=== PATIENT | female | born 1975 | race Caucasian/White ===

== ENCOUNTER 2016-05-15 | Outpatient (CLI) | payer OTHER | END 2016-05-15 15:36 | disposition short-term general hospital (02) | CPT/HCPCS: A0170; A0425; A0426 ==

== ENCOUNTER 2018-12-19 14:40 | Outpatient (CLI) | payer OTHER ==
--- NOTE | 2018-12-22 17:07 | Ultrasound Report ---
Reason: TEST POSITIVE Procedure Date: 12/19/2018 Accession Number: [id number] / [id number] Procedure: US - OB First Trimester CPT Code: FULL RESULT: EXAM: FIRST TRIMESTER OBSTETRIC ULTRASOUND (Less than 11 weeks) EXAM DATE: 12/19/2018 03:04 PM. CLINICAL HISTORY: test positive. LMP: 09/15/2018. COMPARISONS: None. TECHNIQUE: Transabdominal and transvaginal ultrasound examination with static image documentation. CLINICAL DATES: EGA 13 weeks 4 days with EBN 06/22/2019 based on LMP. ASSESSMENT: Gestational Sac: Single Intrauterine (provisional; see below discussion). Mean gestational sac diameter: 12 mm = 6 weeks 0 days. Embryo: CRL (crown-rump length) 4 mm = 6 weeks 2 days. Cardiac activity: 114 beats per minute. Yolk sac: 4 mm. Amniotic fluid: Not accurately assessed at this gestational age. Early placenta: Not visible at this gestational age. Other: 1. Possible septate uterine morphology. 2. Nonspecific oval fluid collection in the right endometrial cavity measuring 1 x 1.7 x 0.7 cm could be pseudo-gestational fluid versus separate gestational sac. 3. 4 mm oval perigestational fluid collection bounded by the echogenic decidual ring. MATERNAL STRUCTURES: Uterus: Retroverted.Probable 9 mm fibroid posterior intramural. Cervix: Closed. Right Ovary/Adnexa: The ovary measures 3.7 x 1.8 x 4.7 cm, volume 15.8 cc. Unremarkable. Left Ovary/Adnexa: The ovary measures 6.3 x 4.6 x 6 cm, volume 91 cc. Contains a unilocular anechoic thin-walled 4.4 x 3 x 4.2 cm cyst. Free Fluid: None. Other: None. IMPRESSION: 1. Provisionally single viable intrauterine at EGA 6 weeks 2 days with BEN 08/12/2019 based on crown-rump length, which is discordant with clinical dates by LMP. 2. Assigned dating is BEN 6 weeks 2 days based on current ultrasound. 3. Nonspecific fluid collection in the right endometrial cavity as described; unable to differentiate pseudo-gestational fluid/sac from separate gestational sac at this time. Recommend short interval follow-up and correlation with serial beta-hCG. 4. Nonspecific 4 mm perigestational fluid collection contained within the decidual ring. RADIA
== END 2018-12-19 14:41 | disposition home or self-care (01) ==
LOC: DI 14:40
PROVIDERS: ATTEND Obstetrics & Gynecology
DX: Z32.01 Encounter for pregnancy test, result positive (principal)
CPT/HCPCS: 76801; 76817

== ENCOUNTER 2018-12-29 08:00 | Outpatient (CLI) | payer OTHER ==
[2018-12-30 15:39] LABS: TRICHOMONAS VAGINALIS DNA UNRESOLVED (NEGATIVE)
== END 2018-12-29 08:01 | disposition home or self-care (01) ==
LOC: LAB.R 08:00
PROVIDERS: ATTEND Obstetrics & Gynecology
DX: O09.90 Supervision of high risk pregnancy, unspecified, unspecified trimester (principal)
CPT/HCPCS: 87491; 87591; 87661

== ENCOUNTER 2018-12-29 08:00 | Outpatient (CLI) | payer OTHER ==
[2018-12-29 14:34] LABS: MUDS CUTOFF CONCENTRATIONS CUTOFF CONC BELOW:
[2018-12-29 15:12] LABS: BILIRUBIN,URINE NEGATIVE (NEGATIVE); GLUCOSE, URINE (UA) NEGATIVE (NEGATIVE); KETONES,URINE (UA) NEGATIVE (NEGATIVE); LEUKOCYTE ESTERASE, URINE NEGATIVE (NEGATIVE); NITRITE,URINE NEGATIVE (NEGATIVE); OCCULT BLOOD,URINE NEGATIVE (NEGATIVE); PH,URINE 8.5 PH (5.0-7.5); PROTEIN,URINE NEGATIVE (NEGATIVE); UROBILINOGEN,URINE 0.2 (NORMAL) E.U./dL (NORMAL)
[2018-12-29 15:20] LABS: CLARITY,URINE CLEAR (CLEAR)
[2018-12-29 15:23] LABS: AMPHETAMINE SCREEN,URINE NEGATIVE (NEGATIVE); BENZODIAZEPINES SCREEN, URINE NEGATIVE (NEGATIVE); COCAINE SCREEN URINE NEGATIVE (NEGATIVE); METHADONE SCREEN, URINE NEGATIVE (NEGATIVE); METHAMPHETAMINES SCREEN, URINE NEGATIVE (NEGATIVE); OPIATE SCREEN, URINE NEGATIVE (NEGATIVE); OXYCODONE SCREEN, URINE NEGATIVE (NEGATIVE); PROPOXYPHENE SCREEN, URINE NEGATIVE (NEGATIVE); TRICYCLIC ANTIDEPRESSANT,URINE NEGATIVE (NEGATIVE)
[2018-12-29 15:35] LABS: BACTERIA,URINE None Seen /HPF (None Seen); RBC,URINE None Seen /HPF (0-5); SQUAMOUS EPITHELIAL CELL,UR MANY Squamous (<= Few)
== END 2018-12-29 08:01 | disposition home or self-care (01) ==
LOC: LAB.R 08:00
PROVIDERS: ATTEND Obstetrics & Gynecology
DX: O09.90 Supervision of high risk pregnancy, unspecified, unspecified trimester (principal)
CPT/HCPCS: 80306; 81001; 87086

== ENCOUNTER 2018-12-29 09:45 | Outpatient (CLI) | payer OTHER ==
[2018-12-29 10:28] LABS: MUDS CUTOFF CONCENTRATIONS CUTOFF CONC BELOW:
[2018-12-29 10:31] LABS: BILIRUBIN,URINE NEGATIVE (NEGATIVE); CLARITY,URINE CLEAR (CLEAR); GLUCOSE, URINE (UA) NEGATIVE (NEGATIVE); KETONES,URINE (UA) NEGATIVE (NEGATIVE); LEUKOCYTE ESTERASE, URINE NEGATIVE (NEGATIVE); NITRITE,URINE NEGATIVE (NEGATIVE); OCCULT BLOOD,URINE NEGATIVE (NEGATIVE); PH,URINE 8.5 PH (5.0-7.5); PROTEIN,URINE NEGATIVE (NEGATIVE); UROBILINOGEN,URINE 0.2 (NORMAL) E.U./dL (NORMAL)
[2018-12-29 10:32] LABS: BASOPHILS # (AUTO) 0.1 10^3/uL (0.0-0.1); BASOPHILS % (AUTO) 0.5 %; EOSINOPHILS # (AUTO) 0.1 10^3/uL (0.0-0.7); EOSINOPHILS % (AUTO) 0.5 %; HGB - HEMOGLOBIN 12.1 g/dL (12.0-16.0); LYMPHOCYTES # (AUTO) 2.3 10^3/uL (1.5-3.5); MEAN CORPUSCULAR HEMOGLOBIN 31.6 pg (27.0-31.0); MEAN CORPUSCULAR HGB CONC 33.6 g/dL (32.0-36.0); MEAN PLATELET VOLUME 10.7 fL (7.9-10.8); MONOCYTES # (AUTO) 0.5 10^3/uL (0.0-1.0); MONOCYTES % (AUTO) 4.8 %; NEUTROPHILS % (AUTO) 70.8 %; PLT - PLATELET COUNT 225 10^3/uL (130-450); RED BLOOD COUNT 3.83 10^6/uL (4.20-5.40); RED CELL DISTRIBUTION WIDTH 12.3 % (12.0-15.0); WHITE BLOOD COUNT 9.9 x10^3/uL (4.8-10.8)
[2018-12-29 10:40] LABS: AMPHETAMINE SCREEN,URINE NEGATIVE (NEGATIVE); BENZODIAZEPINES SCREEN, URINE NEGATIVE (NEGATIVE); COCAINE SCREEN URINE NEGATIVE (NEGATIVE); METHADONE SCREEN, URINE NEGATIVE (NEGATIVE); METHAMPHETAMINES SCREEN, URINE NEGATIVE (NEGATIVE); OPIATE SCREEN, URINE NEGATIVE (NEGATIVE); OXYCODONE SCREEN, URINE NEGATIVE (NEGATIVE); PROPOXYPHENE SCREEN, URINE NEGATIVE (NEGATIVE); TRICYCLIC ANTIDEPRESSANT,URINE NEGATIVE (NEGATIVE)
[2018-12-30 11:48] LABS: HEPATITIS B SURFACE ANTIGEN NON-REACTIVE (NON-REACTIVE); HEPATITIS C ANTIBODY NON-REACTIVE (NON-REACTIVE)
[2018-12-30 14:15] LABS: HIV AG/AB 4TH GEN NON-REACTIVE (NON-REACTIVE)
== END 2018-12-29 09:46 | disposition home or self-care (01) ==
LOC: LAB 09:45
PROVIDERS: ATTEND Obstetrics & Gynecology
DX: O09.90 Supervision of high risk pregnancy, unspecified, unspecified trimester (principal)
CPT/HCPCS: 36415; 80306; 81001; 81003; 81599; 85025; 86592; 86762; 86803; 86850; 86900; 86901; 87086; 87340; 87389; 87491; 87591; 87661

== ENCOUNTER 2019-01-07 14:58 | Outpatient (CLI) | payer OTHER ==
--- NOTE | 2019-01-08 13:45 | Ultrasound Report ---
Reason: SUPERVISION HIGH RISK Procedure Date: 01/07/2019 Accession Number: [id number] / [id number] Procedure: US - OB First Trimester CPT Code: FULL RESULT: EXAM: FIRST TRIMESTER OBSTETRIC ULTRASOUND (Less than 11 weeks) EXAM DATE: 01/07/2019 03:17 PM. CLINICAL HISTORY: SUPERVISION HIGH RISK . LMP: 09/15/2018 but the patient reportedly is unsure. First ultrasound demonstrated discordance with the clinical estimated age. Established BEN based on first ultrasound. COMPARISONS: OB FIRST TRIMESTER 12/19/2018 5:53 PM OB FIRST TRIMESTER 12/19/2018 3:04 PM. TECHNIQUE: Transabdominal and transvaginal ultrasound examination with static image documentation. CLINICAL DATES: Established EGA 9 weeks 0 days with BEN 08/12/2019 based on first ultrasound 12/19/2018. ASSESSMENT: Gestational Sac: Single intrauterine. Mean gestational sac diameter: 35 mm = 8 weeks 5 days. Embryo: CRL (crown-rump length) 21 mm = 8 weeks 5 days. Cardiac activity: 169 beats per minute. Yolk sac: 5 mm. Amniotic fluid: Not accurately assessed at this gestational age. Early placenta: Not visible at this gestational age. Other: 1.8 x 2.3 cm perigestational fluid collection demonstrated. Previously, there was 1.0 x 1.7 x 0.7 cm perigestational fluid collection. Again demonstrated is a well-defined cystic structure abutting the gestational sac and bounded by echogenic decidual ring measuring 1.1 x 0.8 x 1.0 cm, volume 0.40 cc, previously 0.4 x 0.3 x 0.4 cm, volume 0.02 cc. No yolk sac or embryo demonstrated within this. MATERNAL STRUCTURES: Uterus: Anteverted. Unremarkable. Cervix: Closed. Right Ovary/Adnexa: The ovary measures 4.0 x 2.1 x 4.5 cm, volume 19.8 cc, previously estimated as 15.8 cc. Prominent but otherwise unremarkable. Left Ovary/Adnexa: The ovary measures 5.4 x 5.4 x 5.4 cm, volume 82 cc, previously 91 cc. Single simple appearing cyst again demonstrated measuring approximately 3.7 x 3.5 x 3.5 cm, volume 26.0 cc, previously 4.0 x 3.3 x 3.2 cm, volume 21.8 cc. Free Fluid: None. Other: None. IMPRESSION: 1. Single viable intrauterine at EGA 9 weeks 0 days with BEN 08/12/2019 based on first ultrasound with expected interval growth compared with 12/19/2018. 2. Nonspecific cystic structure adjacent to the gestational sac is mildly increased, measuring up to 1.1 cm, previously 0.4 cm. No yolk sac or embryo demonstrated within that structure. 3. Increase perigestational fluid/hemorrhage measuring up to 2.3 cm, previously 1.0 cm. 4. Simple right ovarian cyst measures mildly larger. RADIA
== END 2019-01-07 14:59 | disposition home or self-care (01) ==
LOC: DI 14:58
PROVIDERS: ATTEND Obstetrics & Gynecology
DX: O09.90 Supervision of high risk pregnancy, unspecified, unspecified trimester (principal); O34.81 Maternal care for other abnormalities of pelvic organs, first trimester; N83.201 Unspecified ovarian cyst, right side; O20.9 Hemorrhage in early pregnancy, unspecified; Z3A.09 9 weeks gestation of pregnancy
CPT/HCPCS: 76801; 76817

== ENCOUNTER 2019-01-26 08:00 | Outpatient (CLI) | payer OTHER ==
[2019-01-26 21:21] LABS: TRICHOMONAS VAGINALIS DNA NEGATIVE (NEGATIVE)
== END 2019-01-26 23:59 | disposition home or self-care (01) ==
LOC: LAB.R 08:00
PROVIDERS: ATTEND Obstetrics & Gynecology
DX: O09.90 Supervision of high risk pregnancy, unspecified, unspecified trimester (principal); Z3A.00 Weeks of gestation of pregnancy not specified
CPT/HCPCS: 87491; 87591; 87661

== ENCOUNTER 2019-01-26 09:05 | Outpatient (CLI) | payer OTHER | END 2019-01-26 09:06 | disposition home or self-care (01) | LOC: LAB 09:05 | PROVIDERS: ATTEND Obstetrics & Gynecology | DX: O09.90 Supervision of high risk pregnancy, unspecified, unspecified trimester (principal); Z36.89 Encounter for other specified antenatal screening; Z3A.00 Weeks of gestation of pregnancy not specified | CPT/HCPCS: 36415; 81599; 87491; 87591; 87661 ==

== ENCOUNTER 2019-03-19 10:36 | Outpatient (CLI) | payer OTHER | END 2019-03-19 10:37 | disposition home or self-care (01) | LOC: LAB 10:36 | PROVIDERS: ATTEND Obstetrics & Gynecology | DX: O09.529 Supervision of elderly multigravida, unspecified trimester (principal); Z3A.00 Weeks of gestation of pregnancy not specified | CPT/HCPCS: 36415; 81599; 82105 ==

== ENCOUNTER 2019-05-11 08:19 | Outpatient (CLI) | payer OTHER ==
[2019-05-11 09:39] LABS: HGB - HEMOGLOBIN 11.8 g/dL (12.0-16.0); MEAN CORPUSCULAR HEMOGLOBIN 31.7 pg (27.0-31.0); MEAN CORPUSCULAR HGB CONC 33.4 g/dL (32.0-36.0); MEAN CORPUSCULAR VOLUME 94.9 fL (81.0-99.0); MEAN PLATELET VOLUME 10.1 fL (7.9-10.8); RED BLOOD COUNT 3.72 10^6/uL (4.20-5.40); RED CELL DISTRIBUTION WIDTH 12.3 % (12.0-15.0); WHITE BLOOD COUNT 10.9 x10^3/uL (4.8-10.8)
== END 2019-05-11 08:20 | disposition home or self-care (01) ==
LOC: LAB 08:19
PROVIDERS: ATTEND Obstetrics & Gynecology
DX: O09.529 Supervision of elderly multigravida, unspecified trimester (principal); Z3A.00 Weeks of gestation of pregnancy not specified
CPT/HCPCS: 36415; 82950; 85027

== ENCOUNTER 2019-06-16 07:00 | Outpatient (CLI) | payer OTHER | END 2019-06-16 23:59 | disposition home or self-care (01) | LOC: LAB.R 07:00 | PROVIDERS: ATTEND Obstetrics & Gynecology | DX: Z87.51 Personal history of pre-term labor (principal) | CPT/HCPCS: 82731 ==

== ENCOUNTER 2019-07-13 16:08 | Outpatient (CLI) | payer OTHER ==
[2019-07-13 21:11] LABS: TRICHOMONAS VAGINALIS DNA NEGATIVE (NEGATIVE)
== END 2019-07-13 23:59 | disposition home or self-care (01) ==
LOC: LAB.R 16:08
PROVIDERS: ATTEND Obstetrics & Gynecology
DX: Z36.85 Encounter for antenatal screening for Streptococcus B (principal)
CPT/HCPCS: 87491; 87591; 87661; 87797

== ENCOUNTER 2019-07-21 22:02 | Inpatient (IN) | payer OTHER ==
[2019-07-21 22:25] LABS: RUPTURE OF MEMBRANES PLUS POSITIVE (NEGATIVE)
[2019-07-21] MEDS ORDERED: ONDANSETRON 4 MG/2 ML VIAL IVP PRN (22:36)
[2019-07-21] MEDS ORDERED: SODIUM CHLORIDE FLUSH 0.9% 10 ML SYRINGE IVP PRN (22:36)
[2019-07-21] MEDS ORDERED: fentaNYL 100 MCG/2 ML VIAL IVP PRN (22:36)
[2019-07-21] MEDS ORDERED: LACTATED RINGERS 1,000 ML IV SCH (23:00)
[2019-07-21 23:24] LABS: BASOPHILS % (AUTO) 0.3 %; EOSINOPHILS # (AUTO) 0.2 10^3/uL (0.0-0.7); EOSINOPHILS % (AUTO) 1.5 %; HGB - HEMOGLOBIN 11.9 g/dL (12.0-16.0); LYMPHOCYTES # (AUTO) 2.5 10^3/uL (1.5-3.5); LYMPHOCYTES % (AUTO) 22.2 %; MEAN CORPUSCULAR HEMOGLOBIN 33.1 pg (27.0-31.0); MEAN CORPUSCULAR HGB CONC 35.2 g/dL (32.0-36.0); MEAN CORPUSCULAR VOLUME 94.2 fL (81.0-99.0); MEAN PLATELET VOLUME 10.5 fL (7.9-10.8); MONOCYTES # (AUTO) 0.6 10^3/uL (0.0-1.0); NEUTROPHILS % (AUTO) 70.6 %; PLT - PLATELET COUNT 246 10^3/uL (130-450); RED BLOOD COUNT 3.59 10^6/uL (4.20-5.40); RED CELL DISTRIBUTION WIDTH 12.4 % (12.0-15.0); WHITE BLOOD COUNT 11.3 x10^3/uL (4.8-10.8)
[2019-07-21] MEDS ORDERED: TERBUTALINE 1 MG/ML VIAL SUBQ ONE (23:57)
[2019-07-22] MEDS ORDERED: CITRIC ACID/SODIUM CITRATE 15 ML UDC PO ONE (00:03)
[2019-07-22] MEDS ORDERED: ceFAZolin 3 GM in SODIUM CHLORIDE 0.9% 100ML 100 ML IV ONE (00:03)
--- NOTE | 2019-07-22 00:17 | ANESTHESIA ---
Pre-Anesthesia VS, & Labs - Diagnosis bradycardia - Procedure primary c/s Vital Signs: Temp Pulse Resp BP Pulse Ox 36.9 C 63 21 121/68 100 07/21/19 22:17 07/21/19 22:17 07/21/19 22:17 07/21/19 22:17 07/21/19 22:17 Height 5 ft 2 in Weight (kg) 68.946 kg - NPO Last Fluid Intake: H20 2315 Last Food Intake: 1999 - Is Patient ?: Yes - Lab Results Current Lab Results: Laboratory Tests 07/21/19 23:05: WBC 11.3 H, RBC 3.59 L, Hgb 11.9 L, Hct 33.8 L, MCV 94.2, MCH 33.1 H, MCHC 35.2, RDW 12.4, Plt Count 246, MPV 10.5, Neut # (Auto) 8.0 H, Lymph # (Auto) 2.5, [place] # (Auto) 0.6, Eos # (Auto) 0.2, Baso # (Auto) 0.0, Absolute Nucleated RBC 0.00, Nucleated RBC % 0.0 07/21/19 23:05: Blood Type A POSITIVE, Antibody Screen NEGATIVE, Crossmatch IS Only See Detail Fish Bones: 07/21/19 23:05 Home Medications and Allergies Active Medications Fentanyl (Fentanyl) 50 mcg IVP Q1H PRN PRN Reason: PAIN Lactated Ringer's (Lr) 1,000 mls @ 150 mls/hr IV .Q6H40M ADELINA Last Admin: 07/21/19 23:31 Dose: 150 mls/hr Oxytocin/Sodium Chloride (Pitocin/Sodium Chloride) 500 mls @ 999 mls/hr IV PRN PRN; Protocol PRN Reason: POST- HEMORR PREVENTION Cefazolin Sodium 3 gm/ Sodium (Chloride) 100 mls @ 200 mls/hr IV ONCE ONE Stop: 07/22/19 00:32 Ondansetron HCl (Zofran Inj) 4 mg IVP Q4H PRN PRN Reason: Nausea / Vomiting Sodium Chloride (Normal Saline Flush 0.9%) 10 ml IVP PRN PRN PRN Reason: NEEDED PER PROVIDER ORDERS PNV, ASA, Iron, Allergies/Adverse Reactions: Allergies Allergy/AdvReac Type Severity Reaction Status Date / Time No Known Drug Allergies Allergy Verified 07/21/19 23:26 Anes History & Medical History - Anesthetic History Anesthesia Complications: reports: No previous complications - Medical History Cardiovascular: reports: None Pulmonary: reports: None Gastrointestinal: reports: GERD (during ) Urinary: reports: None Neuro: reports: None Musculoskeletal: reports: None Endocrine/Autoimmune: reports: None Blood Disorders: reports: None Skin: reports: None Smoking Status: Never smoker Psychosocial: reports: No issues indicated - Surgical History General: Other (lipoma excision) Exam General: Alert, Oriented x3, Cooperative, No acute distress Dental: WNL Mouth Openin Fingerbreadth Neck Mobility: Normal Mallampati classification: II Thyromental Distance: greater than 6 cm Respiratory: Lungs clear, Normal breath sounds, No respiratory distress, No accessory muscle use Cardiovascular: Regular rate, Normal S1, Normal S2, No murmurs Mental/Cognitive Status: Alert/Oriented X3, Normal for patient Plan Anesthesia Type: Spinal Consent for Procedure(s) Verified and Reviewed: Yes Code Status: Attempt Resuscitation ASA classification: 2-Mild systemic disease Is this case an emergency?: Yes
[2019-07-22] MEDS ORDERED: ceFAZolin 1 GM VIAL ONE (00:22)
[2019-07-22] MEDS ORDERED: WATER FOR INJECTION,STERILE 10 ML ONE (00:26)
[2019-07-22] MEDS ORDERED: NEOSTIGMINE 1 MG/1 ML 10 ML MDV IVP ONE (00:46)
[2019-07-22] MEDS ORDERED: KETOROLAC 30 MG/ML VIAL IVP ONE (00:46)
[2019-07-22] MEDS ORDERED: GLYCOPYRROLATE 1 MG/5 ML VIAL IVP ONE (00:46)
[2019-07-22] MEDS ORDERED: MORPHINE PF 5 MG/10 ML AMP EP ONE (00:46)
[2019-07-22] MEDS ORDERED: ONDANSETRON 4 MG/2 ML VIAL IVP ONE (00:46)
[2019-07-22] MEDS ORDERED: fentaNYL 100 MCG/2 ML VIAL EP ONE (00:46)
[2019-07-22] MEDS ORDERED: LACTATED RINGERS 1,000 ML IV ONE ×3 (01:06→02:03)
[2019-07-22] MEDS: OXYTOCIN/SODIUM CHLORIDE 500 ML IV PRN ×2 (01:20→03:37)
[2019-07-22] MEDS ORDERED: SODIUM CHLORIDE FLUSH 0.9% 10 ML SYRINGE IVP PRN (02:06)
[2019-07-22] MEDS ORDERED: oxyCODONE 5 MG TABLET PO PRN (02:06)
[2019-07-22] MEDS ORDERED: diphenhydrAMINE 25 MG CAPSULE PO PRN (02:06)
--- NOTE | 2019-07-22 02:19 | OPERATIVE REPORT ---
Operative Report - General Admit Date: 07/21/19 Procedure Date: 07/22/19 Planned Procedure: PLTC/S Procedure Performed: PLT\C/S Post Op Diagnosis: TIGHT NUCAL CORD TIMES 2 - Procedure Note Primary Surgeon: Seth Marvin MD Secondary Surgeon: Radha Abdul MD, [facility] Anesthesia Provider: Jorge Claire CRNA Anesthesia Technique: Spinal Pathology: Placenta IV Fluids (mL): 700 Estimated Blood Loss (mL): 700 Urine Output (mL): 550 Complications: none - Other Other Information/Narrative: [id number]
[2019-07-22] MEDS ORDERED: LACTATED RINGERS 1,000 ML IV SCH (03:00)
[2019-07-22] MEDS: ACETAMINOPHEN 500 MG TABLET PO SCH ×3 (05:12→20:18)
--- NOTE | 2019-07-22 06:30 | OPERATIVE REPORT ---
DATE OF SERVICE: 07/22/2019 Physician: Seth Marvin MD PREOPERATIVE DIAGNOSES 1. 37 weeks. 2. Bright red vaginal bleeding. 3. Spontaneous deceleration. 4. History of placental abruption. POSTOPERATIVE DIAGNOSES 1. Nuchal cord x2. 2. Live female . SURGEON: Seth Marvin MD. IMMIGRATION LAW SPECIALIST: Naty Abdul MD THIRD PIECE DYEING MACHINE TENDER: NATALIO Guillory. ANESTHESIA PROVIDER: Viviane Wesley CRNA. ANESTHETIC: Spinal. PATHOLOGY: Placenta. IV FLUIDS: 700 mL ESTIMATED BLOOD LOSS: 700 mL URINE OUTPUT: 550 mL FINDINGS: Upon entering the abdominal cavity, there was a live female , which was small for gestational age. She was vertex presentation. The head of the was high in the pelvis at this time. The amniotic fluid was clear. Upon entering the uterine cavity, there was a tight nuchal cord x2 with a thin nuchal cord. Placenta was sent for pathology. The tubes and ovaries appeared free of disease. PROCEDURE: Following adequate spinal anesthesia, patient placed in supine position with a roll on right hip. At this point, she was prepped and draped in the usual fashion. Following a timeout, a Pfannenstiel incision was carried down through subcutaneous tissue to the fascia. The fascia was incised transversely and then using Pollock scissors, this incision was carried laterally. The fascia was sharply and bluntly dissected free from the rectus. The rectus was split along the midline and the peritoneum was entered high. Care was taken to avoid any injury to bowel or bladder. At this point, a bladder flap was developed using both blunt and sharp dissection. A low transverse uterine incision was accomplished using a #10 blade, bandage scissors and finger spread technique. The head of the infant was noted to be in the pelvis, but not very deeply descended. The head of the was lifted out of the pelvis and two tight nuchal cord were reduced, with fundal pressure, was delivered through the incision. At this point, the was vigorous and active. Prior to delivery. At this point, the cord was clamped after 30 seconds pulsation and then divided. The infant was handed to the pediatric team that was standing by. A segment of cord was clamped and sent for cord gases and then cord blood was obtained. Placenta was then manually delivered. The uterus was exteriorized, wrapped in a moist lap and cleansed on the internal portion with a dry lap. The low transverse uterine incision was closed then using 0 Vicryl in a running locking suture with an imbricating layer of 0 Vicryl. At this point, the cul-de-sac was irrigated free of clot and then the estimated blood loss was obtained. The uterus was delivered back in the abdominal cavity and then the gutters were likewise irrigated free of any clot. The incision was inspected for bleeding, none was noted. At this point, the peritoneum was closed using 2-0 Vicryl and the rectus was irrigated and then reapproximated with 0 Vicryl [id number] loosely. The fascia was then closed utilizing a looped PDS and the incision was closed with 2-0 Vicryl, subcuticular with a subcuticular stitch of 4-0 Monocryl. This was then dressed with Steri-Strips. The patient tolerated the procedure well and was taken to recovery in stable condition. Sponge and needle counts were correct. Throughout the procedure Dr Negron and Student Support Advisor Cuauhtemoc were instrumental with retraction, suture following, and fundal pressure. Their help was indispensable. TD: 07/22/2019 02:34 SEJAL
[2019-07-22] MEDS: KETOROLAC 30 MG/ML VIAL IVP SCH ×3 (07:52→19:50)
[2019-07-22] MEDS: DOCUSATE SODIUM 100 MG CAPSULE PO SCH ×2 (09:08→20:18)
[2019-07-22] MEDS: SIMETHICONE CHEW 80 MG TABLET PO SCH ×2 (09:08→16:52)
[2019-07-22] MEDS: SODIUM CHLORIDE FLUSH 0.9% 10 ML SYRINGE IVP SCH ×2 (12:28→13:57)
--- NOTE | 2019-07-22 17:24 | PROVIDER PROGRESS NOTE ---
Subjective - General Admit Date: 07/21/19 Procedure Date: 07/22/19 Post Op Days: 0 Procedure Performed: EPLTC/S - Review of Systems Wound/Incisions: positive: Dressing dry and intact General: positive: No symptoms (Pain /10, voiding, passing flatus. breast feeding) Objective - Patient Data Reviewed Vital Signs: Yes Vital Signs: Vital Signs x48h Temp Pulse Resp BP 07/22/19 16:56 16 07/22/19 16:00 36.9 C 56 L 16 108/59 L 07/22/19 15:00 16 07/22/19 14:00 18 07/22/19 13:00 18 07/22/19 12:00 36.8 C 18 106/56 L 07/22/19 11:00 18 07/22/19 10:00 16 Weight: Weight 07/20/19 07/21/19 07/22/19 23:59 23:59 23:59 Weight (kg) 68.946 kg Intake & Output: Intake and Output Totals x24h 07/20/19 07/21/19 07/22/19 23:59 23:59 23:59 Intake Total 4320 Output Total 1187 Balance 3133 - Lab Results Lab Results: 07/21/19 23:05 Other Lab Results: Lab Results x24hrs 07/21/19 07/21/19 07/21/19 Range/Units 23:05 23:05 22:00 WBC 11.3 H (4.8-10.8) x10^3/uL RBC 3.59 L (4.20-5.40) 10^6/uL Hgb 11.9 L (12.0-16.0) g/dL Hct 33.8 L (37.0-47.0) % MCV 94.2 (81.0-99.0) fL MCH 33.1 H (27.0-31.0) pg MCHC 35.2 (32.0-36.0) g/dL RDW 12.4 (12.0-15.0) % Plt Count 246 (130-450) 10^3/uL MPV 10.5 (7.9-10.8) fL Neut # (Auto) 8.0 H (1.5-6.6) 10^3/uL Lymph # (Auto) 2.5 (1.5-3.5) 10^3/uL [place] # (Auto) 0.6 (0.0-1.0) 10^3/uL Eos # (Auto) 0.2 (0.0-0.7) 10^3/uL Baso # (Auto) 0.0 (0.0-0.1) 10^3/uL Absolute Nucleated RBC 0.00 x10^3/uL Nucleated RBC % 0.0 /100WBC Membranes Rupture POSITIVE A (NEGATIVE) Blood Type A POSITIVE Antibody Screen NEGATIVE Crossmatch IS Only See Detail - Current Medications Current Medications: Current Medications Generic Name Dose Route Start Last Admin Trade Name Freq PRN Reason Stop Dose Admin Acetaminophen 1,000 mg 07/22/19 03:00 07/22/19 12:35 Tylenol PO 1,000 mg Q8H ADELINA Administration Docusate Sodium 100 mg 07/22/19 09:00 07/22/19 09:08 Colace 100mg Capsule PO 100 mg BID ADELINA Administration Lactated Ringer's 1,000 mls @ 150 mls/hr 07/21/19 23:00 07/22/19 00:30 Lr IV Infused .Q6H40M ADELINA Infusion Oxytocin/Sodium Chloride 500 mls @ 999 mls/hr 07/21/19 22:36 07/22/19 10:37 Pitocin/Sodium Chloride IV Infused PRN PRN Titration POST- HEMORR PREVENTION Protocol 999 MILLIUNIT/MIN Lactated Ringer's 1,000 mls @ 100 mls/hr 07/22/19 03:00 07/22/19 13:45 Lr IV Infused .Q10H ADELINA Infusion Ketorolac Tromethamine 30 mg 07/22/19 03:00 07/22/19 13:56 Toradol Inj (30mg) IVP 07/22/19 21:01 30 mg Q6H ADELINA Administration Simethicone 80 mg 07/22/19 06:00 07/22/19 16:52 Mylicon PO 80 mg TID ADELINA Administration Sodium Chloride 10 ml 07/22/19 09:00 07/22/19 13:57 Normal Saline Flush 0.9% IVP 10 ml 0100,0900,1700 ADELINA Administration - Physical Exam Wound/Incisions: positive: Healing well, Dressing dry and intact, Drainage (small drainage on clayton left) General Appearance: positive: No acute distress, Alert Respiratory: positive: Chest non-tender, No respiratory distress, Breath sounds nml Cardiovascular: positive: Regular rate & rhythm, No murmur, No gallop Abdomen: positive: Non-tender, Nml bowel sounds Back: negative: CVA tenderness (R), CVA tenderness (L) Extremities: negative: Calf tenderness, Ludwig's sign/cords Neurologic/Psychiatric: positive: Oriented x3 Impression/Plan - Problem List Problem List: POD #0 progressing continue care.
[2019-07-23] MEDS: IBUPROFEN 600 MG TABLET PO SCH ×4 (02:17→20:55)
[2019-07-23] MEDS: KETOROLAC 30 MG/ML VIAL IVP SCH (04:23)
[2019-07-23] MEDS: ACETAMINOPHEN 500 MG TABLET PO SCH ×4 (04:24→23:08)
[2019-07-23] MEDS: DOCUSATE SODIUM 100 MG CAPSULE PO SCH ×2 (09:21→20:55)
[2019-07-23] MEDS: SIMETHICONE CHEW 80 MG TABLET PO SCH ×3 (09:22→18:47)
--- NOTE | 2019-07-23 10:38 | PROVIDER PROGRESS NOTE ---
Subjective - General Admit Date: 07/21/19 Procedure Date: 07/22/19 Post Op Days: 1 Procedure Performed: EPLTC/S - Review of Systems Wound/Incisions: positive: Healing well (dressing removided) General: positive: No symptoms (Pain 10, voiding, passing flatus. breast feeding. Pt is taking only tylenol ad motrin.) Gastrointestinal: positive: Flatus Genitourinary: positive: No symptoms Objective - Patient Data Reviewed Vital Signs: Yes Vital Signs: Vital Signs x48h Temp Pulse Resp BP Pulse Ox 07/23/19 09:25 36.6 C 52 L 18 115/63 100 07/23/19 04:14 36.5 C 44 L 18 109/58 L 99 Weight: Weight 07/21/19 07/22/19 07/23/19 23:59 23:59 23:59 Weight (kg) 68.946 kg Intake & Output: Intake and Output Totals x24h 07/21/19 07/22/19 07/23/19 23:59 23:59 23:59 Intake Total 4680 Output Total 1937 Balance 2743 - Lab Results Lab Results: 07/21/19 23:05 Other Lab Results: Lab Results x24hrs 07/21/19 Range/Units 23:05 Crossmatch IS Only See Detail - Current Medications Current Medications: Current Medications Generic Name Dose Route Start Last Admin Trade Name Freq PRN Reason Stop Dose Admin Acetaminophen 1,000 mg 07/22/19 03:00 07/23/19 05:16 Tylenol PO 1,000 mg Q8H ADELINA Administration Docusate Sodium 100 mg 07/22/19 09:00 07/23/19 09:21 Colace 100mg Capsule PO 100 mg BID ADELINA Administration Lactated Ringer's 1,000 mls @ 150 mls/hr 07/21/19 23:00 07/22/19 00:30 Lr IV Infused .Q6H40M ADELINA Infusion Oxytocin/Sodium Chloride 500 mls @ 999 mls/hr 07/21/19 22:36 07/22/19 10:37 Pitocin/Sodium Chloride IV Infused PRN PRN Titration POST- HEMORR PREVENTION Protocol 999 MILLIUNIT/MIN Lactated Ringer's 1,000 mls @ 100 mls/hr 07/22/19 03:00 07/22/19 13:45 Lr IV Infused .Q10H ADELINA Infusion Ibuprofen 600 mg 07/23/19 02:00 07/23/19 09:22 Motrin PO 600 mg Q6HR ADELINA Administration Simethicone 80 mg 07/22/19 06:00 07/23/19 09:22 Mylicon PO 80 mg TID ADELINA Administration Sodium Chloride 10 ml 07/21/19 22:36 07/22/19 19:51 Normal Saline Flush 0.9% IVP 10 ml PRN PRN Administration NEEDED PER PROVIDER ORDERS Sodium Chloride 10 ml 07/22/19 09:00 07/22/19 13:57 Normal Saline Flush 0.9% IVP 10 ml 0100,0900,1700 ADELINA Administration - Physical Exam Wound/Incisions: positive: Healing well, No drainage General Appearance: positive: No acute distress, Alert Respiratory: positive: Chest non-tender, No respiratory distress, Breath sounds nml Cardiovascular: positive: Regular rate & rhythm, No murmur, No gallop Abdomen: positive: Non-tender, Nml bowel sounds Back: negative: CVA tenderness (R), CVA tenderness (L) Skin: positive: Color nml, No rash, Warm, Dry Neurologic/Psychiatric: positive: Oriented x3 Impression/Plan - Problem List Problem List: POD #1 excellent progress. Slow heart beat secondary to physical fitness
[2019-07-24] MEDS: IBUPROFEN 600 MG TABLET PO SCH ×2 (02:35→08:47)
[2019-07-24] MEDS: ACETAMINOPHEN 500 MG TABLET PO SCH (06:42)
[2019-07-24] MEDS: DOCUSATE SODIUM 100 MG CAPSULE PO SCH (08:47)
[2019-07-24] MEDS: SIMETHICONE CHEW 80 MG TABLET PO SCH (08:48)
[2019-07-24 09:04] VITALS: BP 126/86
--- NOTE | 2019-07-24 10:06 | PROVIDER PROGRESS NOTE ---
Subjective - General Admit Date: 07/21/19 Procedure Date: 07/22/19 Post Op Days: 2 Procedure Performed: EPLTC/S - Review of Systems Wound/Incisions: positive: Healing well (no erythema), No drainage General: positive: No symptoms (Pain 1/10, voiding, passing flatus. passing stool, breast feeding milk in. Pt is taking only tylenol and motrin.) Cardiovascular: positive: No symptoms Gastrointestinal: positive: Flatus Genitourinary: positive: No symptoms Objective - Patient Data Reviewed Vital Signs: Yes Vital Signs: Vital Signs x48h Temp Pulse Resp BP Pulse Ox 07/24/19 08:40 36.8 C 63 16 126/86 H 100 07/24/19 04:25 36.5 C 52 L 20 113/69 97 Intake & Output: Intake and Output Totals x24h 07/22/19 07/23/19 07/24/19 23:59 23:59 23:59 Intake Total 4680 Output Total 1937 Balance 2743 - Lab Results Lab Results: 07/21/19 23:05 - Current Medications Current Medications: Current Medications Generic Name Dose Route Start Last Admin Trade Name Freq PRN Reason Stop Dose Admin Acetaminophen 1,000 mg 07/22/19 03:00 07/24/19 06:42 Tylenol PO 1,000 mg Q8H ADELINA Administration Docusate Sodium 100 mg 07/22/19 09:00 07/24/19 08:47 Colace 100mg Capsule PO 100 mg BID ADELINA Administration Lactated Ringer's 1,000 mls @ 150 mls/hr 07/21/19 23:00 07/22/19 00:30 Lr IV Infused .Q6H40M ADELINA Infusion Oxytocin/Sodium Chloride 500 mls @ 999 mls/hr 07/21/19 22:36 07/22/19 10:37 Pitocin/Sodium Chloride IV Infused PRN PRN Titration POST- HEMORR PREVENTION Protocol 999 MILLIUNIT/MIN Lactated Ringer's 1,000 mls @ 100 mls/hr 07/22/19 03:00 07/22/19 13:45 Lr IV Infused .Q10H ADELINA Infusion Ibuprofen 600 mg 07/23/19 02:00 07/24/19 08:47 Motrin PO 600 mg Q6HR ADELINA Administration Simethicone 80 mg 07/22/19 06:00 07/24/19 08:48 Mylicon PO 80 mg TID ADELINA Administration Sodium Chloride 10 ml 07/21/19 22:36 07/22/19 19:51 Normal Saline Flush 0.9% IVP 10 ml PRN PRN Administration NEEDED PER PROVIDER ORDERS Sodium Chloride 10 ml 07/22/19 09:00 07/22/19 13:57 Normal Saline Flush 0.9% IVP 10 ml 0100,0900,1700 ADELINA Administration - Physical Exam Wound/Incisions: positive: Healing well, No drainage. negative: Erythema General Appearance: positive: No acute distress, Alert Respiratory: positive: Chest non-tender, No respiratory distress, Breath sounds nml Cardiovascular: positive: Regular rate & rhythm, No murmur, No gallop Abdomen: positive: Non-tender, Nml bowel sounds, No distention, Mass (U-2) Back: negative: CVA tenderness (R), CVA tenderness (L) Extremities: negative: Calf tenderness, Ludwig's sign/cords Impression/Plan - Problem List Problem List: POD #2 excellent progress. Discharge medications Oxycodone 5mg #5 Motrin 600 mg # 30 Colace 100 mg #30 RTC 1 week Reviewed breast feeding contraception mastitis
--- NOTE | 2019-07-24 10:14 | DISCHARGE SUMMARY ---
"Discharge Summary Admit Date: 07/21/19 Discharge Date: 07/24/19 Discharging Provider: Seth Marvin MD Code Status: Attempt Resuscitation Condition at Discharge: Good Discharge Disposition: 01 Home, Self Care - DIAGNOSES Admission Diagnoses: 1. 36.6 weeks 2. SROM 3. Active labor Discharge Diagnoses with Status of Each Condition: 1. 36.6 weeks 2. SROM 3. Active labor 4. vaginal bleeding possible abruption 5. 2 tight nuchal chords 6. S/P EPLTC/S - HPI History of Present Illness: 43 yo at 36.6 weeks care at [facility] transfered care. Pt has a history of twins and another delivery with abruption. She persented with SROM at home. and in labor. - CONSULTS | PROCEDURES Procedures: PLTC/S - HOSPITAL COURSE Hospital Course: Pt presented with [facility] at 36.6 weeks developed red vaginal bleeding. she also had a deep variable deceleration. at that time the head was 2/1ong/-4. because belivery was felt to be very remote decided to proceed with C/S. At time of delivery 2 tight Nuchal cords were reduced. Pt recovered well. - ALLERGIES Allergies/Adverse Reactions: Allergies Allergy/AdvReac Type Severity Reaction Status Date / Time No Known Drug Allergies Allergy Verified 07/21/19 23:26 - MEDICATIONS Home Medications Other | Comments: oxycodone 5 mg # 5 motrin 600 mg #30 Colace 100 mg #30 - PHYSICAL EXAM AT DISCHARGE General Appearance: positive: No acute distress, Alert Respiratory: positive: Chest non-tender, No respiratory distress, Breath sounds nml Cardiovascular: positive: Regular rate & rhythm, No murmur, No gallop Abdomen: positive: Non-tender, No organomegaly, Nml bowel sounds, Mass (U-2) Back: negative: CVA tenderness (R), CVA tenderness (L) Extremities: negative: Calf tenderness, Ludwig's sign/cords Neurologic/Psychiatric: positive: Oriented x3 - LABS Result Diagrams: 07/21/19 23:05 - FOLLOW UP Follow Up: one week"
--- NOTE | 2019-07-24 14:21 | Labor Flowsheet ---
Labor Flowsheet Datetime Report Generated by CPN: 07/24/2019 14:21 Datetime: 07/22/2019 00:41 PATIENT CARE Patient Care Comments: To OR with OCEAN LIFEGUARD, A. Quentin PNEUMATIC TUBE OPERATOR, LJ Spear RNC and K. Prado [facility]NC Datetime: 07/22/2019 00:39 Pulse: 70 SpO2 (%): 100 COMMUNICATION LaborFlag: OB Triage Datetime: 07/22/2019 00:30 UTERINE ACTIVITY Monitor Mode: External Frequency (min): 2-3 Quality: Moderate Duration (sec): 70-100 Pattern: Normal: <= 5 Contractions in 10 Minutes Resting Tone (Palpate): Relaxed ASSESSMENT A Monitor Mode: Internal Scalp Electrode FHR Baseline Rate : 130 Variability: Moderate 6-25 bpm Accelerations: 15X15 Decelerations: None Category: Category I Datetime: 07/22/2019 00:23 VITAL SIGNS NBP Sys/Demetria/Mean (mmHg): 136 : 88 : 101 Datetime: 07/22/2019 00:15 Actions for Decelerations: Oxygen Applied; IV Bolus Datetime: 07/21/2019 23:55 VAGINAL EXAM Dilatation (cm): 2.0 Effacement (%): 80 Station: -4 Exam by: Dr. Marvin Amniotic Fluid Color: Bloody Amniotic Fluid Amount: Moderate Amniotic Fluid Odor: Normal Datetime: 07/21/2019 23:49 Comments: Prolonged variable deceleration noted x 4 minutes. pt treated with side to side repositio jorge, O2 per nasal canula at 4 L/minute. IV LR bolus begun and Dr Marvin notified to come assess pt. Datetime: 07/21/2019 23:43 Respirations: 16
== END 2019-07-24 11:45 | disposition home or self-care (01) | DRG 788 ==
LOC: WFO 22:02 → FBP 22:03 → WFO 22:35 → FBP 22:36
PROVIDERS: ADMIT Obstetrics & Gynecology; ATTEND Obstetrics & Gynecology
PROC: 10D00Z1 Extraction of Products of Conception, Low, Open Approach (ICD-10-PCS; principal; 2019-07-22 01:00)
DX: O42.013 Preterm premature rupture of membranes, onset of labor within 24 hours of rupture, third trimester (principal); O77.9 Labor and delivery complicated by fetal stress, unspecified; O67.8 Other intrapartum hemorrhage; O69.1XX0 Labor and delivery complicated by cord around neck, with compression, not applicable or unspecified; Z37.0 Single live birth; Z3A.36 36 weeks gestation of pregnancy; Z87.59 Personal history of other complications of pregnancy, childbirth and the puerperium; Z79.82 Long term (current) use of aspirin
CPT/HCPCS: 84112; 85025; 86850; 86900; 86901; 86920; 88307; 99213; A9270; J7120

== ENCOUNTER 2019-07-27 15:44 | Inpatient (IN) | payer OTHER ==
[2019-07-27] MEDS ORDERED: LABETALOL 5 MG/1 ML 20 ML MDV IVP SCH (16:06)
[2019-07-27] MEDS ORDERED: hydrALAZINE INJ 20 MG/ML VIAL IVP PRN (16:08)
[2019-07-27 16:20] LABS: BILIRUBIN,URINE NEGATIVE (NEGATIVE); GLUCOSE, URINE (UA) NEGATIVE (NEGATIVE); KETONES,URINE (UA) NEGATIVE (NEGATIVE); LEUKOCYTE ESTERASE, URINE NEGATIVE (NEGATIVE); NITRITE,URINE NEGATIVE (NEGATIVE); OCCULT BLOOD,URINE NEGATIVE (NEGATIVE); PROTEIN,URINE NEGATIVE (NEGATIVE); UROBILINOGEN,URINE 0.2 (NORMAL) E.U./dL (NORMAL)
[2019-07-27 16:21] LABS: CLARITY,URINE CLEAR (CLEAR)
[2019-07-27 16:23] LABS: BASOPHILS % (AUTO) 0.5 %; EOSINOPHILS # (AUTO) 0.2 10^3/uL (0.0-0.7); EOSINOPHILS % (AUTO) 2.8 %; HGB - HEMOGLOBIN 11.2 g/dL (12.0-16.0); LYMPHOCYTES # (AUTO) 1.9 10^3/uL (1.5-3.5); LYMPHOCYTES % (AUTO) 30.2 %; MEAN CORPUSCULAR HEMOGLOBIN 32.9 pg (27.0-31.0); MEAN CORPUSCULAR HGB CONC 33.4 g/dL (32.0-36.0); MEAN CORPUSCULAR VOLUME 98.5 fL (81.0-99.0); MEAN PLATELET VOLUME 9.8 fL (7.9-10.8); MONOCYTES # (AUTO) 0.4 10^3/uL (0.0-1.0); NEUTROPHILS # (AUTO) 3.8 10^3/uL (1.5-6.6); NEUTROPHILS % (AUTO) 60.2 %; PLT - PLATELET COUNT 252 10^3/uL (130-450); RED CELL DISTRIBUTION WIDTH 12.2 % (12.0-15.0); WHITE BLOOD COUNT 6.3 x10^3/uL (4.8-10.8)
[2019-07-27 16:32] LABS: CREATININE 0.9 mg/dL (0.4-1.0); URIC ACID 5.6 mg/dL (2.6-7.2)
[2019-07-27 16:34] LABS: CREATININE,URINE 26.7 mg/dL
[2019-07-27] MEDS ORDERED: NIFEdipine 10 MG CAPSULE PO PRN (16:41)
[2019-07-27 17:07] LABS: TOTAL PROTEIN,URINE TIMED < 6 mg/dL
[2019-07-27] MEDS: MAGNESIUM SULFATE 2 GRAM 2 GM/50 ML BAG IV SCH ×2 (17:36→17:47)
--- NOTE | 2019-07-27 17:53 | HISTORY & PHYSICAL EXAMINATION ---
Admit History - Visit Reason Visit Reason: Other ( pre-eclampsia) - : 5 Parity: 6 Care: positive: [facility] Risk/History: positive: labor <37 weeks Smoking Status: Never smoker - Other Maternal History Other Maternal History: Patient is a 43 yo s/p LTCS on 07/22/2019 who presents with pre-eclampsia with severe features. Patient reports that she has been tracking BP at home as shehad been feeling unwell. BPs had been trending up and she was seen in triage last night with BP in mild range. She was counseled to stop ibuprofen and was discharged to home. Today she was seen in Pediatrics and was noted ot be shaky and weak. Reported palpitations and reported that her heart was pounding. She had a mildly elevated BP at [facility]. She was sent directl yto clinic where she reported having a severe headache that did nto improve with tylenol. SBP 174/84 with repeat BPs in the 1 60s. She was given 1000 mg of tylenol and sent to triage. Intake BPs remained in the 160s. Denies vision change or RUQ pain. Reports that her post-op pain is minimal Meds/Allgy - Allergies Allergies/Adverse Reactions: Allergies Allergy/AdvReac Type Severity Reaction Status Date / Time No Known Drug Allergies Allergy Verified 07/21/19 23:26 Review of Systems - Other Findings Other Findings: As per HPI, otherwise remaining systems are negative. Physical - Abdominal Exam Vital Signs: Temp Pulse Resp BP Pulse Ox 98.4 F 49 L 16 133/72 H 100 07/27/19 16:00 07/27/19 17:26 07/27/19 16:00 07/27/19 17:26 07/27/19 16:00 - Other Notes Labor Progress Note/Additional Text: GEN: mild distress, now NAD HEENT: NCAT CV: mild bradycardia, cw baseline RESP: no effort EXT: WWP NEURO: A&) Plan for Labor - Plan For Labor Plan for Labor: PRE-ECLAMPSIA: -Patient cannot have IV or oral labetalol due to baseline bradycardia -Given nifedipine 10 mg po x1; BPs in mild range and MAHMOOD improved -Starting on nifedipine 30 mg XL once daily; will likey increase to BID dosing -IV hydralazine if severe range pressures recur and persist over 15 minutes -PIH labs wnl -Magnesium 4 mg bolus with 2 g/hr IV infusion FEN: Reg diet -Limit IV fluid to no more thna 125 cc combined Anticipate minimum of 24 hour in-patient stay for magnesium infusion and BP management
[2019-07-27] MEDS: MAGNESIUM SULFATE IN WATER 20 GM/500 ML IV.SOLN IV SCH (18:06)
[2019-07-27] MEDS ORDERED: METOCLOPRAMIDE 10 MG/2 ML VIAL IVP PRN (20:03)
[2019-07-27] MEDS ORDERED: NIFEdipine ER 30 MG TABLET PO SCH (22:06)
[2019-07-27] MEDS: ACETAMINOPHEN 500 MG TABLET PO PRN (22:12)
[2019-07-27] MEDS ORDERED: PROPRANOLOL 10 MG TABLET PO ONE (23:12)
[2019-07-27 23:51] LABS: BASOPHILS % (AUTO) 0.5 %; EOSINOPHILS # (AUTO) 0.3 10^3/uL (0.0-0.7); EOSINOPHILS % (AUTO) 4.2 %; HGB - HEMOGLOBIN 11.6 g/dL (12.0-16.0); LYMPHOCYTES # (AUTO) 2.1 10^3/uL (1.5-3.5); LYMPHOCYTES % (AUTO) 27.4 %; MEAN CORPUSCULAR HEMOGLOBIN 32.8 pg (27.0-31.0); MEAN CORPUSCULAR HGB CONC 34.2 g/dL (32.0-36.0); MEAN CORPUSCULAR VOLUME 95.8 fL (81.0-99.0); MEAN PLATELET VOLUME 9.5 fL (7.9-10.8); MONOCYTES # (AUTO) 0.5 10^3/uL (0.0-1.0); MONOCYTES % (AUTO) 6.5 %; NEUTROPHILS # (AUTO) 4.7 10^3/uL (1.5-6.6); NEUTROPHILS % (AUTO) 61.1 %; PLT - PLATELET COUNT 257 10^3/uL (130-450); RED BLOOD COUNT 3.54 10^6/uL (4.20-5.40); RED CELL DISTRIBUTION WIDTH 12.1 % (12.0-15.0); WHITE BLOOD COUNT 7.7 x10^3/uL (4.8-10.8)
[2019-07-27 23:57] LABS: ALBUMIN 3.4 g/dL (3.2-5.5); ALBUMIN/GLOBULIN RATIO 1.1 (1.0-2.2); BILIRUBIN,TOTAL 0.7 mg/dL (0.2-1.0); CALCIUM 8.3 mg/dL (8.5-10.3); CREATININE 0.9 mg/dL (0.4-1.0); TOTAL PROTEIN 6.5 g/dL (6.7-8.2)
[2019-07-28] LABS: URIC ACID 6.1 mg/dL (2.6-7.2)
[2019-07-28] MEDS ORDERED: diphenhydrAMINE 25 MG CAPSULE PO PRN (00:20)
[2019-07-28] MEDS: MAGNESIUM SULFATE IN WATER 20 GM/500 ML IV.SOLN IV SCH (04:03)
[2019-07-28 05:37] LABS: CREATININE,URINE 14.2 mg/dL
[2019-07-28 05:38] LABS: TOTAL PROTEIN,URINE TIMED < 6 mg/dL
[2019-07-28] MEDS: ACETAMINOPHEN 500 MG TABLET PO PRN ×2 (06:00→13:38)
[2019-07-28 06:10] LABS: BASOPHILS % (AUTO) 0.6 %; EOSINOPHILS # (AUTO) 0.3 10^3/uL (0.0-0.7); EOSINOPHILS % (AUTO) 5.1 %; HGB - HEMOGLOBIN 12.1 g/dL (12.0-16.0); MEAN CORPUSCULAR HEMOGLOBIN 33.1 pg (27.0-31.0); MEAN CORPUSCULAR HGB CONC 34.8 g/dL (32.0-36.0); MEAN CORPUSCULAR VOLUME 95.1 fL (81.0-99.0); MEAN PLATELET VOLUME 9.4 fL (7.9-10.8); MONOCYTES # (AUTO) 0.5 10^3/uL (0.0-1.0); MONOCYTES % (AUTO) 7.2 %; NEUTROPHILS # (AUTO) 3.6 10^3/uL (1.5-6.6); NEUTROPHILS % (AUTO) 55.8 %; PLT - PLATELET COUNT 275 10^3/uL (130-450); RED BLOOD COUNT 3.66 10^6/uL (4.20-5.40); RED CELL DISTRIBUTION WIDTH 11.9 % (12.0-15.0); WHITE BLOOD COUNT 6.5 x10^3/uL (4.8-10.8)
[2019-07-28 06:27] LABS: URIC ACID 6.3 mg/dL (2.6-7.2)
[2019-07-28] MEDS ORDERED: NIFEdipine ER 30 MG TABLET PO SCH ×2 (08:34→18:00)
[2019-07-28] MEDS ORDERED: LABETALOL 100 MG TABLET PO SCH (09:00)
[2019-07-28] MEDS ORDERED: MAGNESIUM SULFATE IN WATER 20 GM/500 ML IV.SOLN IV SCH (10:45)
[2019-07-28] MEDS ORDERED: POTASSIUM CHLORIDE 20 MEQ TABLET PO SCH (14:44)
[2019-07-28] MEDS: oxyCODONE 5 MG TABLET PO PRN (15:00)
--- NOTE | 2019-07-28 16:35 | PROVIDER PROGRESS NOTE ---
Subjective - Prog Note Date Prog Note Date: 07/28/19 Prog Note Time: 09:00 - Subjective Subjective: Patient feeling better this am. Had nifed 30mg XL overnight and a single dose of propanolol for MAHMOOD and sensation of palpitations. VS were wnl, EK wnl, Cardiac enzymes wnl and O2 sats in range. This am, still has some residual headache and blurred vision 2/2 Mg. No scotomata. BPs wnl. Pain related toCS well managed. No NV. Objective - Vital Signs/Intake & Output Vital Signs: Vital Signs x48h Temp Pulse Resp BP Pulse Ox 07/28/19 15:02 56 L 16 117/83 H 96 07/28/19 13:40 66 18 123/82 H 97 07/28/19 11:56 97.9 F 69 16 116/74 97 07/28/19 10:16 97.7 F 16 107/68 96 Intake & Output: Intake & Output 07/25/19 07/26/19 07/27/19 07/28/19 23:59 23:59 23:59 23:59 Intake Total 77.5 2694.167 Output Total 2100 2630 Balance -2022.5 64.167 - Objective General Appearance: positive: No acute distress Respiratory: positive: Chest non-tender, No respiratory distress Cardiovascular: positive: Regular rate & rhythm Abdomen: positive: Non-tender, Other (S&NT/ND. No RUQ tenderness. Incision line with steristrips CDI) Skin: positive: No rash Extremities: positive: Non-tender, No pedal edema Neurologic/Psychiatric: positive: Oriented x3 - Lab Results Fish Bones: 07/28/19 05:58 07/27/19 23:33 Other Labs: Lab Results x24hrs 07/28/19 07/28/19 07/28/19 Range/Units 05:58 05:58 05:58 WBC 6.5 (4.8-10.8) x10^3/uL RBC 3.66 L (4.20-5.40) 10^6/uL Hgb 12.1 (12.0-16.0) g/dL Hct 34.8 L (37.0-47.0) % MCV 95.1 (81.0-99.0) fL MCH 33.1 H (27.0-31.0) pg MCHC 34.8 (32.0-36.0) g/dL RDW 11.9 L (12.0-15.0) % Plt Count 275 (130-450) 10^3/uL MPV 9.4 (7.9-10.8) fL Neut # (Auto) 3.6 (1.5-6.6) 10^3/uL Lymph # (Auto) 2.0 (1.5-3.5) 10^3/uL Garrett # (Auto) 0.5 (0.0-1.0) 10^3/uL Eos # (Auto) 0.3 (0.0-0.7) 10^3/uL Baso # (Auto) 0.0 (0.0-0.1) 10^3/uL Absolute Nucleated RBC 0.00 x10^3/uL Nucleated RBC % 0.0 /100WBC Fibrinogen 487 (220-496) mg/dL Sodium (135-145) mmol/L Potassium (3.5-5.0) mmol/L Chloride (101-111) mmol/L Carbon Dioxide (21-32) mmol/L Anion Gap (6-13) BUN (6-20) mg/dL Creatinine (0.4-1.0) mg/dL Estimated GFR (MDRD) (>89) Glucose (70-100) mg/dL Uric Acid (2.6-7.2) mg/dL Calcium (8.5-10.3) mg/dL Magnesium (1.7-2.8) mg/dL Total Bilirubin (0.2-1.0) mg/dL AST (10-42) IU/L ALT (10-60) IU/L Alkaline Phosphatase (42-121) IU/L Lactate Dehydrogenase 161 (91-225) IU/L Troponin I High Sens (2.3-14.8) ng/L Total Protein (6.7-8.2) g/dL Albumin (3.2-5.5) g/dL Globulin (2.1-4.2) g/dL Albumin/Globulin Ratio (1.0-2.2) TSH (0.34-5.60) uIU/mL Urine Creatinine mg/dL Ur Total Protein Timed mg/dL Protein/Creatinin Ratio 07/28/19 07/28/19 07/27/19 Range/Units 05:58 05:00 23:33 WBC (4.8-10.8) x10^3/uL RBC (4.20-5.40) 10^6/uL Hgb (12.0-16.0) g/dL Hct (37.0-47.0) % MCV (81.0-99.0) fL MCH (27.0-31.0) pg MCHC (32.0-36.0) g/dL RDW (12.0-15.0) % Plt Count (130-450) 10^3/uL MPV (7.9-10.8) fL Neut # (Auto) (1.5-6.6) 10^3/uL Lymph # (Auto) (1.5-3.5) 10^3/uL Garrett # (Auto) (0.0-1.0) 10^3/uL Eos # (Auto) (0.0-0.7) 10^3/uL Baso # (Auto) (0.0-0.1) 10^3/uL Absolute Nucleated RBC x10^3/uL Nucleated RBC % /100WBC Fibrinogen (220-496) mg/dL Sodium (135-145) mmol/L Potassium (3.5-5.0) mmol/L Chloride (101-111) mmol/L Carbon Dioxide (21-32) mmol/L Anion Gap (6-13) BUN (6-20) mg/dL Creatinine (0.4-1.0) mg/dL Estimated GFR (MDRD) (>89) Glucose (70-100) mg/dL Uric Acid 6.3 (2.6-7.2) mg/dL Calcium (8.5-10.3) mg/dL Magnesium 7.0 H* (1.7-2.8) mg/dL Total Bilirubin (0.2-1.0) mg/dL AST 30 (10-42) IU/L ALT (10-60) IU/L Alkaline Phosphatase (42-121) IU/L Lactate Dehydrogenase (91-225) IU/L Troponin I High Sens (2.3-14.8) ng/L Total Protein (6.7-8.2) g/dL Albumin (3.2-5.5) g/dL Globulin (2.1-4.2) g/dL Albumin/Globulin Ratio (1.0-2.2) TSH 2.09 (0.34-5.60) uIU/mL Urine Creatinine 14.2 mg/dL Ur Total Protein Timed < 6 mg/dL Protein/Creatinin Ratio 07/27/19 07/27/19 07/27/19 Range/Units 23:33 23:33 23:33 WBC (4.8-10.8) x10^3/uL RBC (4.20-5.40) 10^6/uL Hgb (12.0-16.0) g/dL Hct (37.0-47.0) % MCV (81.0-99.0) fL MCH (27.0-31.0) pg MCHC (32.0-36.0) g/dL RDW (12.0-15.0) % Plt Count (130-450) 10^3/uL MPV (7.9-10.8) fL Neut # (Auto) (1.5-6.6) 10^3/uL Lymph # (Auto) (1.5-3.5) 10^3/uL Garrett # (Auto) (0.0-1.0) 10^3/uL Eos # (Auto) (0.0-0.7) 10^3/uL Baso # (Auto) (0.0-0.1) 10^3/uL Absolute Nucleated RBC x10^3/uL Nucleated RBC % /100WBC Fibrinogen 463 (220-496) mg/dL Sodium 138 (135-145) mmol/L Potassium 3.2 L (3.5-5.0) mmol/L Chloride 102 (101-111) mmol/L Carbon Dioxide 25 (21-32) mmol/L Anion Gap 11.0 (6-13) BUN 13 (6-20) mg/dL Creatinine 0.9 (0.4-1.0) mg/dL Estimated GFR (MDRD) 69 L (>89) Glucose 108 H (70-100) mg/dL Uric Acid (2.6-7.2) mg/dL Calcium 8.3 L (8.5-10.3) mg/dL Magnesium (1.7-2.8) mg/dL Total Bilirubin 0.7 (0.2-1.0) mg/dL AST 27 (10-42) IU/L ALT 18 (10-60) IU/L Alkaline Phosphatase 84 (42-121) IU/L Lactate Dehydrogenase (91-225) IU/L Troponin I High Sens 3.7 (2.3-14.8) ng/L Total Protein 6.5 L (6.7-8.2) g/dL Albumin 3.4 (3.2-5.5) g/dL Globulin 3.1 (2.1-4.2) g/dL Albumin/Globulin Ratio 1.1 (1.0-2.2) TSH (0.34-5.60) uIU/mL Urine Creatinine mg/dL Ur Total Protein Timed mg/dL Protein/Creatinin Ratio 07/27/19 07/27/19 07/27/19 Range/Units 23:33 23:33 23:33 WBC 7.7 (4.8-10.8) x10^3/uL RBC 3.54 L (4.20-5.40) 10^6/uL Hgb 11.6 L (12.0-16.0) g/dL Hct 33.9 L (37.0-47.0) % MCV 95.8 (81.0-99.0) fL MCH 32.8 H (27.0-31.0) pg MCHC 34.2 (32.0-36.0) g/dL RDW 12.1 (12.0-15.0) % Plt Count 257 (130-450) 10^3/uL MPV 9.5 (7.9-10.8) fL Neut # (Auto) 4.7 (1.5-6.6) 10^3/uL Lymph # (Auto) 2.1 (1.5-3.5) 10^3/uL Garrett # (Auto) 0.5 (0.0-1.0) 10^3/uL Eos # (Auto) 0.3 (0.0-0.7) 10^3/uL Baso # (Auto) 0.0 (0.0-0.1) 10^3/uL Absolute Nucleated RBC 0.00 x10^3/uL Nucleated RBC % 0.0 /100WBC Fibrinogen (220-496) mg/dL Sodium (135-145) mmol/L Potassium (3.5-5.0) mmol/L Chloride (101-111) mmol/L Carbon Dioxide (21-32) mmol/L Anion Gap (6-13) BUN (6-20) mg/dL Creatinine (0.4-1.0) mg/dL Estimated GFR (MDRD) (>89) Glucose (70-100) mg/dL Uric Acid 6.1 (2.6-7.2) mg/dL Calcium (8.5-10.3) mg/dL Magnesium (1.7-2.8) mg/dL Total Bilirubin (0.2-1.0) mg/dL AST 28 (10-42) IU/L ALT (10-60) IU/L Alkaline Phosphatase (42-121) IU/L Lactate Dehydrogenase 164 (91-225) IU/L Troponin I High Sens (2.3-14.8) ng/L Total Protein (6.7-8.2) g/dL Albumin (3.2-5.5) g/dL Globulin (2.1-4.2) g/dL Albumin/Globulin Ratio (1.0-2.2) TSH (0.34-5.60) uIU/mL Urine Creatinine mg/dL Ur Total Protein Timed mg/dL Protein/Creatinin Ratio 07/27/19 07/27/19 Range/Units 16:12 15:40 WBC (4.8-10.8) x10^3/uL RBC (4.20-5.40) 10^6/uL Hgb (12.0-16.0) g/dL Hct (37.0-47.0) % MCV (81.0-99.0) fL MCH (27.0-31.0) pg MCHC (32.0-36.0) g/dL RDW (12.0-15.0) % Plt Count (130-450) 10^3/uL MPV (7.9-10.8) fL Neut # (Auto) (1.5-6.6) 10^3/uL Lymph # (Auto) (1.5-3.5) 10^3/uL Garrett # (Auto) (0.0-1.0) 10^3/uL Eos # (Auto) (0.0-0.7) 10^3/uL Baso # (Auto) (0.0-0.1) 10^3/uL Absolute Nucleated RBC x10^3/uL Nucleated RBC % /100WBC Fibrinogen (220-496) mg/dL Sodium (135-145) mmol/L Potassium (3.5-5.0) mmol/L Chloride (101-111) mmol/L Carbon Dioxide (21-32) mmol/L Anion Gap (6-13) BUN (6-20) mg/dL Creatinine 0.9 (0.4-1.0) mg/dL Estimated GFR (MDRD) 69 L (>89) Glucose (70-100) mg/dL Uric Acid 5.6 (2.6-7.2) mg/dL Calcium (8.5-10.3) mg/dL Magnesium (1.7-2.8) mg/dL Total Bilirubin (0.2-1.0) mg/dL AST 26 (10-42) IU/L ALT 18 (10-60) IU/L Alkaline Phosphatase (42-121) IU/L Lactate Dehydrogenase (91-225) IU/L Troponin I High Sens (2.3-14.8) ng/L Total Protein (6.7-8.2) g/dL Albumin (3.2-5.5) g/dL Globulin (2.1-4.2) g/dL Albumin/Globulin Ratio (1.0-2.2) TSH (0.34-5.60) uIU/mL Urine Creatinine 26.7 mg/dL Ur Total Protein Timed < 6 mg/dL Protein/Creatinin Ratio Not Reportable Assessment/Plan - Problem List (1) Pre-eclampsia, Impression: HTN: BPs managed on nifedipine 30 mg XL -If BP peak in afternoon, consider BID dosing Cont Magnesium through 24 hours. -Consider through pm if BP rise Decrease Magnesium to 1g/hr PIH labs wnl FEN: -Reg diet -Replete potassium Patient is reliable withchecking BPs at home. If able to maintain normal BPs for 24 hours, consider DC home with routine home BP checks In-patient care
[2019-07-29] MEDS: ACETAMINOPHEN 500 MG TABLET PO PRN ×2 (00:59→08:19)
[2019-07-29] MEDS: oxyCODONE 5 MG TABLET PO PRN (04:57)
--- NOTE | 2019-07-29 11:53 | PROVIDER PROGRESS NOTE ---
Subjective - Prog Note Date Prog Note Date: 07/29/19 Prog Note Time: 11:48 - Subjective Subjective: Patient has been off of magnesium for 12+ hours. BPs well controlled on nifedipine 30 mg XL. Isolated elevated blood pressure this am,normal on repeat 2 minutes later. Had MAHMOOD this am that improved with tylenol. No vision change or RUQ pain. Postop pain is not a concern. Objective - Vital Signs/Intake & Output Vital Signs: Vital Signs x48h Temp Pulse Resp BP Pulse Ox 07/29/19 11:21 137/77 H 07/29/19 08:08 97.7 F 61 16 136/84 H 98 07/29/19 05:00 98.2 F 51 L 16 112/66 97 Intake & Output: Intake & Output 07/26/19 07/27/19 07/28/19 07/29/19 23:59 23:59 23:59 23:59 Intake Total 77.5 3567.500 Output Total 2100 3580 Balance -2022.5 -12.500 - Objective General Appearance: positive: No acute distress Respiratory: positive: Chest non-tender, No respiratory distress, Breath sounds nml Cardiovascular: positive: Regular rate & rhythm Abdomen: positive: Non-tender, Other (Steristrips removed. Incision line CDI) Back: positive: Nml inspection Skin: positive: Color nml Extremities: positive: Non-tender, No pedal edema - Lab Results Fish Bones: 07/28/19 05:58 07/27/19 23:33 Assessment/Plan - Problem List (1) Pre-eclampsia, Impression: BPs have been in normal range for 24 hours Residual headache now managed with tylenol. Isolated elevation this am after moving patient. Normal on repeat a few minutes later. Reviewed BPS, mainly in 110s through out the day. Cannot likely support twice a day dosing Patient is highly reliable and checks BP at home Has Fu appt tomorrow Will check BP Q30 min for the next 2 hours. If remains in normal range, will DC home wiht fu in 24 hours Cont nifedipine 30 mg XL Will check TID BPS during waking hours at home and instructed on warning signs and severe range pressures Likely DC to home in 3 hours pending close survillance of pressures
--- NOTE | 2019-07-29 11:56 | Discharge Plan ---
Discharge Plan Problem Reviewed?: Yes Disposition: 01 Home, Self Care Condition: Good Diet: Regular Activity Restrictions: Additional Comments (Nothing in the vagina for 6 weeks: No intercourse, tampons, douching Call for: -Fever greater than 100.5 - Pain that does not improve with pain medication -Heavy bleeding in which you are soaking a pad an hour for 2 hours in a row No lifting more than 10# for 3 weeks Check blood pressures 3 times a day during waking hours. -Call for systolic blood pressure (upper number) greater than or equal to 160 or Diastolic blood pressure (bottom number) greater than or equal to 105 -Call for headaches that do not improve with pain medicine, sparkly lights or black spots in your field of vision, or severe pain in the right upper corner of your abdomen.) Shower Restrictions: No Plan of Treatment: Will check home blood pressures three times a day while waking Continue nifedipine 30 mg XL daily (Rx called into [facility]/[place]) FU tomorrow with Dr. Shavonne Baxter Smoking: If you smoke, Please STOP! Call for help.
[2019-07-29 13:09] VITALS: BP 132/81
== END 2019-07-29 13:48 | disposition home or self-care (01) | DRG 776 ==
LOC: WFO 15:44 → UNDOADMIN 15:45 → FBP 15:45
PROVIDERS: ADMIT Obstetrics & Gynecology; ATTEND Obstetrics & Gynecology
DX: O14.15 Severe pre-eclampsia, complicating the puerperium (principal)
CPT/HCPCS: 36415; 80053; 81003; 82565; 82570; 83615; 83735; 84156; 84443; 84450; 84460; 84484; 84550; 85025; 85384; 93005; A9270

== ENCOUNTER 2019-10-28 07:00 | Outpatient (CLI) | payer OTHER | END 2019-10-28 23:59 | disposition home or self-care (01) | LOC: LAB.R 07:00 | PROVIDERS: ATTEND Advanced Practice Midwife | DX: R14.0 Abdominal distension (gaseous) (principal) | CPT/HCPCS: 87086 ==

== ENCOUNTER 2019-11-20 18:48 | Outpatient (CLI) | payer OTHER ==
--- NOTE | 2019-11-21 08:52 | Ultrasound Report ---
PROCEDURE: Pelvic w/Transvaginal INDICATIONS: ABDOMINAL DISTENTION TECHNIQUE: Real-time scanning was performed of the pelvic organs, with image documentation. Additional endovagi nal scanning was necessary due to incomplete visualization of the adnexal and endometrial structures by transabdominal scanning. COMPARISON: None. FINDINGS: Transabdominal scanning: Limited scanning through the kidneys shows demonstrates mild to moderate ri ght hydronephrosis which persists post void. No pathologic free abdominal or pelvic fluid. Endovaginal scanning: Uterus: Uterus is normal in size at 7.0 x 3.4 x 4.9 cm. The endometrium measures 2 mm in combined t hickness. There is a left anterior subserosal fibroid measuring 1.6 x 1.0 x 1.5 cm and a right anter ior subserosal fibroid measuring 1.1 x 1.1 x 1.6 cm. Ovaries: The right ovary measures 4.3 x 2.3 x 2.7 cm on the left ovary measures 4.4 x 2.5 x 2.7 cm. There are numerous, greater than 12, small follicles demonstrated in the ovaries bilaterally with a p eripheral predominance. Otherwise, no adnexal masses. IMPRESSION: 1. Multiple small bilateral ovarian follicles with a peripheral predominance. The findings may reflec t polycystic ovarian syndrome in the appropriate clinical context. 2. Bilateral small subserosal uterine fibroids. 3. Mild to moderate right hydronephrosis which persists post void. 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 Reviewed by: Rasta Patel MD on 11/21/2019 12:48 AM PDT Approved by: Rasta Patel MD on 11/21/2019 12:48 AM PDT Station ID: [id number]
== END 2019-11-20 18:49 | disposition home or self-care (01) ==
LOC: DI 18:48
PROVIDERS: ATTEND Obstetrics & Gynecology
DX: N83.02 Follicular cyst of left ovary (principal); N83.01 Follicular cyst of right ovary; D25.2 Subserosal leiomyoma of uterus; N13.30 Unspecified hydronephrosis; R93.5 Abnormal findings on diagnostic imaging of other abdominal regions, including retroperitoneum
CPT/HCPCS: 76705; 76830; 76856

== ENCOUNTER 2020-01-04 16:33 | Outpatient (CLI) | payer OTHER ==
--- NOTE | 2020-01-04 18:30 | CT Report ---
PROCEDURE: Abdomen/Pelvis WO INDICATIONS: HYDRONEPHROSIS, RT TECHNIQUE: Noncontrast 5 mm thick sections acquired from the diaphragms to the symphysis. 5 mm coronal and sagi ttal reformats were then performed. For radiation dose reduction, the following was used: automated exposure control, adjustment of mA and/or kV according to patient size. COMPARISON: Ultrasound of abdomen dated 11/20/2019.. FINDINGS: Image quality: Excellent. ABDOMEN: Lung bases: Lung bases are clear. Heart size is normal. Solid organs: Liver and spleen are normal in size. Gallbladder is contracted and shows no gross abn ormality. Pancreas is normal in contours. No adrenal nodules. Kidneys are normal in size, without hydronephrosis or nephrolithiasis. Peritoneum and bowel: Unenhanced bowel loops demonstrate normal wall thickness and caliber. No free fluid or air. Appendix is visualized and is within normal limits. Fecal stasis throughout the colon is seen. Nodes and vessels: No retroperitoneal or mesenteric adenopathy by size criteria. Aorta and inferior vena cava are normal in caliber. Miscellaneous: No ventral hernias. PELVIS: Genitourinary: Bladder wall thickness is normal. Miscellaneous: No inguinal hernias or adenopathy. Bones: No suspicious bony lesions. No vertebral body compression fractures. IMPRESSION: 1. No renal stone or hydronephrosis. Normal-appearing bilateral ureters and urinary bladder. 2. Contracted gallbladder. No CT evidence of acute cholecystitis. 3. Mild constipation. No bowel obstruction. No abnormal bowel wall thickening. No free fluid of free air. Normal appendix. Reviewed by: Marek Navarrete MD on 01/04/2020 5:28 PM AKDT Approved by: Marek Navarrete MD on 01/04/2020 5:28 PM AKDT Station ID: [id number]
== END 2020-01-04 16:34 | disposition home or self-care (01) ==
LOC: DI 16:33
PROVIDERS: ATTEND Obstetrics & Gynecology
DX: N13.30 Unspecified hydronephrosis (principal); K59.00 Constipation, unspecified
CPT/HCPCS: 74176

== ENCOUNTER 2020-11-13 16:21 | Emergency (ER) | payer OTHER ==
[2020-11-13 16:26] VITALS: BP 145/81
--- NOTE | 2020-11-13 16:27 | ED Physician Documentation ---
PD HPI HEENT - Stated complaint Stated Complaint: RT EAR PX - Chief complaint Chief Complaint: Heent - History obtained from History obtained from: Patient - History of Present Illness Timing - onset: How many days ago (4-5) Timing - duration: Days (4-5) Timing - details: Gradual onset Location: Right ear, Tooth (She has had progressive worsening of pain in the right TMJ and posterior mandible area. Its severe the past day. She saw her dentist 2 days ago thought it was not dental related.) Improves: No: Medication (Ibuprofen 800 mg three times daily for the past 4-5 days.) Worsens: Other (chewing and some with palpation of the posterior mandible and TMJ area.) Associated symptoms: No: Fever, Congestion, Swollen nodes, Facial swelling, Headache, Cough Similar symptoms before: Has not had sx before Recently seen: Clinic (Had a temporary crown for several months and was scheduled to have it converted to the permanent crown anyway. While there her dentist examined the area and did not think the pain was from that.) Review of Systems Constitutional: denies: Fever, Chills Nose: denies: Rhinorrhea / runny nose, Congestion Throat: reports: Other (TMJ clicking for awhile without pain, but does note it clicking with mouth opening more recently.). 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 - Present Medications Home Medications: Ambulatory Orders Medication Instructions Recorded Confirmed Loratadine [Claritin] 10 mg PO DAILY 11/18/19 11/18/19 Multivitamin [Multiple Vitamins] 1 tab ORAL DAILY 11/18/19 11/18/19 HYDROcod/ACETAM 5/325 [[place] 5/325] 1 ea PO Q6H PRN #15 tablet 11/13/20 Meloxicam [Mobic] 7.5 mg PO BID PRN #15 tablet 11/13/20 cephALEXin [Keflex] 500 mg PO TID 5 Days #15 cap 11/13/20 - Allergies Allergies/Adverse Reactions: Allergies Allergy/AdvReac Type Severity Reaction Status Date / Time No Known Drug Allergies Allergy Verified 11/13/20 16:26 - Social History Does the pt smoke?: No Smoking Status: Never smoker Does the pt drink ETOH?: No Does the pt have substance abuse?: No - Immunizations Immunizations are current?: Yes PD ED PE NORMAL - Vitals Vital signs reviewed: Yes - General General: Alert and oriented X 3, Well developed/nourished - HEENT HEENT: Pharynx benign, Other (There is some tenderness to the gum in the upper 1st molar and 2nd molar area. Mild tenderness to percussion. The TMJ is tender by external palpation and there is clicking noted with opening and closing of the mouth. No redness rash or sores in the area. No adenopathy.) - Neck Neck: Supple, no meningeal sign, No adenopathy - Cardiac Cardiac: RRR, No murmur - Respiratory Respiratory: Clear bilaterally - Derm Derm: Normal color, Warm and dry, No rash Results - Vitals Vitals: Vital Signs - 24 hr 11/13/20 16:24 Temperature 37.3 C Heart Rate 65 Respiratory 16 Rate Blood Pressure 145/81 H O2 Saturation 99 Oxygen O2 Source Room air PD MEDICAL DECISION MAKING - ED course Complexity details: considered differential (Consider dental pain or infection, TMJ inflammation, trigeminal neuralgia, other process.), d/w patient Departure - Departure Disposition: 01 Home, Self Care Clinical Impression: Jaw pain TMJ arthralgia Qualifiers: Laterality: right Qualified Code(s): M26.621 - Arthralgia of right temporomandibular joint Condition: Stable Record reviewed to determine appropriate education?: Yes Instructions: ED TMJ Syndrome Follow-Up: Les Pedraza MD [Primary Care Provider] - [facility] [Provider Group] Prescriptions: cephALEXin [Keflex] 500 mg PO TID 5 Days #15 cap Meloxicam [Mobic] 7.5 mg PO BID PRN #15 tablet PRN Reason: Pain HYDROcod/ACETAM 5/325 [[place] 5/325] 1 ea PO Q6H PRN #15 tablet PRN Reason: Pain Comments: Some melena stomach there may be an infection of the root of the tooth (epicondylitis) and so we can treat her with an antibiotic as well as continuing an anti-inflammatory. Add Tylenol or hydrocodone as needed for pain. This would be intended short-term as I would think improvement over the next 3 to 5 days. Some element seems possibly TMJ inflammation. Anti-inflammatory and pain medicine would still be appropriate. I would continue with the bite- block/mouthguard use at night to take some of the pressure off of the TMJ joint. This would be a mainstay of treatment for inflammation of the cartilage in that area. Recheck with your primary care or dentist if not improved well over the next several days and resolved by 3 to 5 days. Alternatively you could see ENT specialist to think of other ideas in the area. Another consideration which it does not quite sound like at this point, is an inflammation of the nerve in the area (trigeminal neuralgia). The character of the pain does not quite sound like that at this point. I am prescribing a short course of narcotic pain medication for you. These are potentially dangerous and addictive medications that should be used carefully. These medications may constipate you. Take an [id number] stool softener such as docusate twice daily with plenty of water while taking these medications. If you go 24 hours without a bowel movement, take [id number] MiraLAX, per package instructions. Do not drink or drive while taking these medications. If you received narcotic or sedating medications while in the emergency department do not drive for 24 hours. Store this medication in a safe, secure place and out of reach of children. It is a violation of federal law to give or sell this medication to another person or to use in a manner other than prescribed. The ED will not refill narcotic prescriptions, including prescriptions lost or stolen. You can dispose of unwanted medications at the [facility]'s office or at several pharmacies such as [facility].
[2020-11-13] MEDS ORDERED: cephALEXin 250 MG CAPSULE PO STA (16:55)
[2020-11-13] MEDS ORDERED: ACETAMINOPHEN 325 MG TABLET PO STA (16:55)
== END 2020-11-13 17:26 | disposition home or self-care (01) ==
LOC: ED 16:21
DX: M26.621 Arthralgia of right temporomandibular joint (principal); I10 Essential (primary) hypertension
CPT/HCPCS: 99283; 99284; A9270

== ENCOUNTER 2021-01-17 08:28 | Outpatient (CLI) | payer OTHER ==
[2021-01-17 12:56] LABS: CHOL/HDL RATIO 3.5 (<4.4); CHOLESTEROL 233 mg/dL; HDL CHOLESTEROL 66 mg/dL; LDL CHOLESTEROL,CALCULATED 156 mg/dL; LDL/HDL RATIO 2.4 (<4.4); TRIGLYCERIDES 54 mg/dL; VLDL CHOLESTEROL 11 mg/dL
[2021-01-17 12:58] LABS: THYROID STIMULATING HORMONE 1.33 uIU/mL (0.34-5.60)
[2021-01-17 13:21] LABS: ESTIMATED AVERAGE GLUCOSE 100 mg/dL (70-100); HEMOGLOBIN A1c% 5.1 % (4.27-6.07)
== END 2021-01-17 08:29 | disposition home or self-care (01) ==
LOC: LAB.N 08:28
PROVIDERS: ATTEND Obstetrics & Gynecology
DX: Z00.00 Encounter for general adult medical examination without abnormal findings (principal); N92.6 Irregular menstruation, unspecified; Z13.1 Encounter for screening for diabetes mellitus
CPT/HCPCS: 36415; 80053; 80061; 82306; 83036; 83721; 84443; 84702

== ENCOUNTER 2021-01-18 15:54 | Outpatient (CLI) | payer OTHER ==
--- NOTE | 2021-01-19 09:46 | Ultrasound Report ---
PROCEDURE: Pelvic w/Transvaginal INDICATIONS: IRREGULAR MENSES TECHNIQUE: Real-time scanning was performed of the pelvic organs, with image documentation. Additional endovagi nal scanning was necessary due to incomplete visualization of the adnexal and endometrial structures by transabdominal scanning. COMPARISON: Reference is made to the pelvic ultrasound report dated November 20, 2019. FINDINGS: UTERUS: Mildly heterogeneous echotexture, retroverted, and measures 8.8 x 3.3 x 5.1 cm. The endometrial thickness measures 5.6 mm. RIGHT OVARY: 5.7 x 3 x 2.8 cm. Color-flow projects over the ovarian tissue. Greater than 12 follicles . LEFT OVARY: 5.4 x 1.8 x 2.3 cm. Color-flow projects over the ovarian tissue. Greater than 12 follicle s. OTHER: None. IMPRESSION: 1.No significant sonographic abnormality. 2.Ovarian volume greater than 10 mL, which is nonspecific but can be seen in the setting of polycysti c ovary syndrome. Reviewed by: Jarocho Slaughter MD on 01/19/2021 9:45 AM PDT Approved by: Jarocho Slaughter MD on 01/19/2021 9:45 AM PDT Station ID: [id number]
== END 2021-01-18 15:55 | disposition home or self-care (01) ==
LOC: DI 15:54
PROVIDERS: ATTEND Obstetrics & Gynecology
DX: N92.6 Irregular menstruation, unspecified (principal)

== ENCOUNTER 2021-05-26 08:00 | Outpatient (CLI) | payer OTHER ==
[2021-05-27 00:06] LABS: CHLAMYDIA TRACHOMATIS DNA NEGATIVE (NEGATIVE); NEISSERIA GONORRHOEAE DNA NEGATIVE (NEGATIVE); TRICHOMONAS VAGINALIS DNA NEGATIVE (NEGATIVE)
== END 2021-05-26 23:59 | disposition home or self-care (01) ==
LOC: LAB.N 08:00
PROVIDERS: ATTEND Physician Assistant
DX: N76.0 Acute vaginitis (principal)
CPT/HCPCS: 87491; 87591; 87661

== ENCOUNTER 2021-05-27 13:05 | Outpatient (CLI) | payer OTHER ==
[2021-05-27 19:44] LABS: BACTERIAL VAGINOSIS DNA NEGATIVE (NEGATIVE); CANDIDA GLABRATA DNA NEGATIVE (NEGATIVE); CANDIDA GROUP DNA NEGATIVE (NEGATIVE); CANDIDA KRUSEI DNA NEGATIVE (NEGATIVE); TRICHOMONAS VAGINALIS DNA NEGATIVE (NEGATIVE)
== END 2021-05-27 13:06 | disposition home or self-care (01) ==
LOC: LAB.N 13:05
PROVIDERS: ATTEND Physician Assistant Medical
DX: N76.0 Acute vaginitis (principal)
CPT/HCPCS: 87086; 87661; 87801

== ENCOUNTER 2021-07-20 07:06 | Outpatient (CLI) | payer OTHER ==
[2021-07-20 14:07] LABS: CHOLESTEROL 189 mg/dL; HDL CHOLESTEROL 62 mg/dL; LDL CHOLESTEROL,CALCULATED 119 mg/dL; LDL/HDL RATIO 1.9 (<4.4); TRIGLYCERIDES 40 mg/dL; VLDL CHOLESTEROL 8 mg/dL
== END 2021-07-20 07:07 | disposition home or self-care (01) ==
LOC: LAB.N 07:06
PROVIDERS: ATTEND Obstetrics & Gynecology
DX: E78.00 Pure hypercholesterolemia, unspecified (principal)
CPT/HCPCS: 36415; 80061; 83721

== ENCOUNTER 2022-02-21 14:38 | Outpatient (CLI) | payer OTHER ==
--- NOTE | 2022-02-22 09:48 | Mammography Report ---
BILATERAL DIGITAL SCREENING MAMMOGRAM 3D/2D: 02/21/2022 CLINICAL: Baseline exam. Routine screening. No prior exams were available for comparison. Both breasts are extremely dense, which lowers the sensitivity of mammography (category d />75% gland ular tissue). No significant masses, calcifications, or other findings are seen in either breast. IMPRESSION: NEGATIVE There is no mammographic evidence of malignancy. A 1 year screening mammogram is recommended. Based on Tyrer-Cuzick model (a risk assessment model), the patient's lifetime risk is 22.7% and her 1 0 year risk is 4.4%. If a patient has an elevated risk, a more comprehensive evaluation should be con sidered and/or a referral to a genetic counselor. The [place] [employer], [place] [employer], and NCCN Guidelines advise the consideration of Breast MRI as an adjunct to screening mammog brooks in patients whose "Lifetime risk to develop breast cancer" is 20% or higher. This exam was interpreted at Station ID: [id number]. NOTE: For mammograms, a report in lay terms will be sent to the patient. Approximately 15% of breast malignancies will not be visualized mammographically. In the management of a palpable breast mass, a negative mammogram must not discourage biopsy of a clinically suspicious lesion. Electronically Signed By: Shaji alaniz/[email or web address]:02/22/2022 08:10:14 ACR BI-RADS Category 1: Negative 3341F PARENCHYMAL PATTERN: (VD) - The breast(s) demonstrate(s) extremely dense parenchyma, limiting the sen sitivity of mammography. BI-RADS CATEGORY: (1) - 1 RECOMMENDATION: (ANNUAL) - Recommend routine annual screening mammography. [id number] 1 year screening LATERALITY: (B)
== END 2022-02-21 14:39 | disposition home or self-care (01) ==
LOC: DI.N 14:38
DX: Z12.31 Encounter for screening mammogram for malignant neoplasm of breast (principal)

== ENCOUNTER 2023-03-06 15:03 | Outpatient (CLI) | payer OTHER ==
--- NOTE | 2023-03-08 12:27 | Mammography Report ---
BILATERAL DIGITAL SCREENING MAMMOGRAM 3D/2D: 03/06/2023 CLINICAL: Routine screening. Comparison is made to exam dated: 02/21/2022 mammogram - [facility]. Both breasts are extremely dense, which lowers the sensitivity of mammography (category d />75% gland ular tissue). No significant masses, calcifications, or other findings are seen in either breast. There has been no significant interval change. IMPRESSION: NEGATIVE There is no mammographic evidence of malignancy. A 1 year screening mammogram is recommended. Based on Tyrer-Cuzick model (a risk assessment model), the patient's lifetime risk is 22.8% and her 1 0 year risk is 4.6%. If a patient has an elevated risk, a more comprehensive evaluation should be con sidered and/or a referral to a genetic counselor. The [place] [employer], [place] [employer], and NCCN Guidelines advise the consideration of Breast MRI as an adjunct to screening mammog brooks in patients whose "Lifetime risk to develop breast cancer" is 20% or higher. This exam was interpreted at Station ID: [id number]. NOTE: For mammograms, a report in lay terms will be sent to the patient. Approximately 15% of breast malignancies will not be visualized mammographically. In the management of a palpable breast mass, a negative mammogram must not discourage biopsy of a clinically suspicious lesion. Electronically Signed By: Mehnaz Sherman M.D., PH.D /penrad:03/07/2023 22:53:05 letter sent: No_Letter ACR BI-RADS Category 1: Negative 3341F PARENCHYMAL PATTERN: (VD) - The breast(s) demonstrate(s) extremely dense parenchyma, limiting the sen sitivity of mammography. BI-RADS CATEGORY: (1) - 1 Mammogram [id number] 1 year screening LATERALITY: (B)
== END 2023-03-06 15:04 | disposition home or self-care (01) ==
LOC: DI.N 15:03
DX: Z12.31 Encounter for screening mammogram for malignant neoplasm of breast (principal); R92.343 Mammographic extreme density, bilateral breasts

== ENCOUNTER 2023-09-25 07:49 | Outpatient (CLI) | payer OTHER ==
[2023-09-25 12:49] LABS: BASOPHILS % (AUTO) 0.6 %; EOSINOPHILS # (AUTO) 0.1 10^3/uL (0.0-0.7); EOSINOPHILS % (AUTO) 1.3 %; HCT - HEMATOCRIT 38.6 % (37.0-47.0); HGB - HEMOGLOBIN 12.7 g/dL (12.0-16.0); LYMPHOCYTES # (AUTO) 1.8 10^3/uL (1.5-3.5); LYMPHOCYTES % (AUTO) 32.8 %; MEAN CORPUSCULAR HEMOGLOBIN 30.9 pg (27.0-31.0); MEAN CORPUSCULAR HGB CONC 32.9 g/dL (32.0-36.0); MEAN CORPUSCULAR VOLUME 93.9 fL (81.0-99.0); MEAN PLATELET VOLUME 11.2 fL (7.9-10.8); MONOCYTES # (AUTO) 0.2 10^3/uL (0.0-1.0); MONOCYTES % (AUTO) 4.4 %; NEUTROPHILS # (AUTO) 3.3 10^3/uL (1.5-6.6); NEUTROPHILS % (AUTO) 60.7 %; PLT - PLATELET COUNT 233 10^3/uL (130-450); RED BLOOD COUNT 4.11 10^6/uL (4.20-5.40); RED CELL DISTRIBUTION WIDTH 12.2 % (12.0-15.0); WHITE BLOOD COUNT 5.4 x10^3/uL (4.8-10.8)
[2023-09-25 13:04] LABS: CHOL/HDL RATIO 2.8 (<4.4); CHOLESTEROL 169 mg/dL; HDL CHOLESTEROL 60 mg/dL; LDL CHOLESTEROL,CALCULATED 97 mg/dL; LDL/HDL RATIO 1.6 (<4.4); TRIGLYCERIDES 60 mg/dL; VLDL CHOLESTEROL 12 mg/dL
[2023-09-25 13:13] LABS: ESTIMATED AVERAGE GLUCOSE 91 mg/dL (70-100); HEMOGLOBIN A1c% 4.8 % (4.27-6.07)
[2023-09-25 13:15] LABS: THYROID STIMULATING HORMONE 0.99 uIU/mL (0.34-5.60)
[2023-09-25 13:19] LABS: FERRITIN 24.9 ng/mL (11.0-306.8)
== END 2023-09-25 07:50 | disposition home or self-care (01) ==
LOC: LAB.N 07:49
PROVIDERS: ATTEND Pediatrics
DX: L65.9 Nonscarring hair loss, unspecified (principal); Z13.220 Encounter for screening for lipoid disorders; Z13.1 Encounter for screening for diabetes mellitus
CPT/HCPCS: 36415; 80061; 82728; 83036; 83721; 84443; 85025

== ENCOUNTER 2023-10-09 18:05 | Outpatient (CLI) | payer OTHER ==
--- NOTE | 2023-10-10 15:54 | XRAY Report ---
PROCEDURE: Finger(s) RT INDICATIONS: CONTUSION OF RIGHT LITTLE FINGER TECHNIQUE: AP hand, 2 views of the fifth finger(s) acquired. COMPARISON: None FINDINGS: Bones: No fractures or dislocations. No suspicious bony lesions. Soft tissues: No suspicious soft tissue calcifications. IMPRESSION: Unremarkable fifth finger radiographs Reviewed by: Gregg Miller MD on 10/10/2023 2:53 PM AKDT Approved by: Gregg Miller MD on 10/10/2023 2:53 PM AKDT Station ID: [id number]
== END 2023-10-09 18:06 | disposition home or self-care (01) ==
LOC: DI 18:05
PROVIDERS: ATTEND Nurse Practitioner
DX: S60.051A Contusion of right little finger without damage to nail, initial encounter (principal)